=== PATIENT | male | born 1925 | race Caucasian/White ===

== ENCOUNTER → 2017-01-12 | Outpatient (CLI) | payer MEDICARE, BC ==
[~2017-01-12] MED LIST: ALBU.5I NEB; ASPI81TA19 PO; BENZ100 PO; LEVO50TA4 PO; LISI-515 PO; PRED10PA PO; PRIL20CA9 PO; VITA10004 PO; ZITH250T PO
[2017-01-12 09:09] LABS: HEMATOCRIT 39.8 % (39.0-51.0); MEAN CELL VOLUME 91.3 FL (80.0-100.0); MEAN CORPUSCULAR HEMOGLOBIN 30.5 PG (27.0-34.0); MEAN CORPUSCULAR HGB CONC 33.4 % (32.0-36.0); PLATELET COUNT 174 TH/MM3 (150-450); RED BLOOD COUNT 4.36 MIL/MM3 (4.50-5.90); RED CELL DISTRIBUTION WIDTH 14.7 % (11.6-17.2); REVIEW FLAG FINAL; WHITE BLOOD COUNT 5.1 TH/MM3 (4.0-11.0)
[2017-01-12 09:27] LABS: ALKALINE PHOSPHATASE 66 U/L (45-117); ALT (GPT) 16 U/L (12-78); ANION GAP 6 MEQ/L (5-15); AST (GOT) 20 U/L (15-37); BICARBONATE 29.5 MEQ/L (21.0-32.0); BLOOD UREA NITROGEN 15 MG/DL (7-18); CHLORIDE 108 MEQ/L (98-107); GLOMERULAR FILTRATION RATE 59 ML/MIN (>89); GLUCOSE,FASTING 111 MG/DL (74-99); HDL CHOLESTEROL 33.7 MG/DL (40.0-60.0); LDL CHOLESTEROL 103 MG/DL (0-99); LDL CHOLESTEROL DIRECT 117 MG/DL (0-99); POTASSIUM 4.1 MEQ/L (3.5-5.1); SODIUM (NA) 143 MEQ/L (136-145); TOTAL BILIRUBIN ADULT 0.6 MG/DL (0.2-1.0)
[2017-01-12 16:03] LABS: HEMOGLOBIN Ao 86.1 %; HEMOGLOBIN F 0.8 %; HEMOGLOBIN P3 3.8 %
== END ==
LOC: PLAB 06:57
PROVIDERS: ATTEND Family Medicine
DX: E78.2 Mixed hyperlipidemia (principal); E11.9 Type 2 diabetes mellitus without complications; I10 Essential (primary) hypertension; E03.8 Other specified hypothyroidism
CPT/HCPCS: 36415; 80053; 80061; 83036; 83721; 84439; 84443; 85027

== ENCOUNTER → 2017-04-14 | Outpatient (CLI) | payer MEDICARE, BC ==
[2017-04-14 09:23] LABS: HEMATOCRIT 36.9 % (39.0-51.0); MEAN CELL VOLUME 86.6 FL (80.0-100.0); MEAN CORPUSCULAR HEMOGLOBIN 29.1 PG (27.0-34.0); MEAN CORPUSCULAR HGB CONC 33.5 % (32.0-36.0); PLATELET COUNT 180 TH/MM3 (150-450); RED BLOOD COUNT 4.26 MIL/MM3 (4.50-5.90); RED CELL DISTRIBUTION WIDTH 14.2 % (11.6-17.2); REVIEW FLAG FINAL; WHITE BLOOD COUNT 5.6 TH/MM3 (4.0-11.0)
[2017-04-14 09:56] LABS: ANION GAP 10 MEQ/L (5-15); AST (GOT) 14 U/L (15-37); BICARBONATE 25.4 MEQ/L (21.0-32.0); BLOOD UREA NITROGEN 18 MG/DL (7-18); CHLORIDE 107 MEQ/L (98-107); GLOMERULAR FILTRATION RATE 76 ML/MIN (>89); GLUCOSE,FASTING 110 MG/DL (74-99); POTASSIUM 4.6 MEQ/L (3.5-5.1); SODIUM (NA) 142 MEQ/L (136-145)
[2017-04-14 10:08] LABS: ALKALINE PHOSPHATASE 75 U/L (45-117); ALT (GPT) 14 U/L (12-78); FREE T4 1.09 NG/DL (0.76-1.46); HDL CHOLESTEROL 26.6 MG/DL (40.0-60.0); LDL CHOLESTEROL 94 MG/DL (0-99); LDL CHOLESTEROL DIRECT 92 MG/DL (0-99); TOTAL BILIRUBIN ADULT 0.5 MG/DL (0.2-1.0)
[2017-04-14 16:44] LABS: HEMOGLOBIN A1a 1.2 %; HEMOGLOBIN A1b 1.7 %; HEMOGLOBIN Ao 85.3 %
== END ==
LOC: PLAB 06:52
PROVIDERS: ATTEND Family Medicine
DX: E11.9 Type 2 diabetes mellitus without complications (principal); E78.5 Hyperlipidemia, unspecified; I10 Essential (primary) hypertension; E03.8 Other specified hypothyroidism
CPT/HCPCS: 36415; 80053; 80061; 83036; 83721; 84439; 84443; 85027

== ENCOUNTER → 2017-08-12 | Outpatient (CLI) | payer MEDICARE, BC ==
[2017-08-12 10:16] LABS: HEMATOCRIT 35.3 % (39.0-51.0); MEAN CELL VOLUME 84.3 FL (80.0-100.0); MEAN CORPUSCULAR HEMOGLOBIN 27.5 PG (27.0-34.0); MEAN CORPUSCULAR HGB CONC 32.6 % (32.0-36.0); PLATELET COUNT 195 TH/MM3 (150-450); RED BLOOD COUNT 4.19 MIL/MM3 (4.50-5.90); RED CELL DISTRIBUTION WIDTH 16.1 % (11.6-17.2); REVIEW FLAG FINAL; WHITE BLOOD COUNT 5.6 TH/MM3 (4.0-11.0)
[2017-08-12 10:31] LABS: ANION GAP 5 MEQ/L (5-15); AST (GOT) 17 U/L (15-37); BLOOD UREA NITROGEN 18 MG/DL (7-18); CHLORIDE 110 MEQ/L (98-107); GLOMERULAR FILTRATION RATE 70 ML/MIN (>89); GLUCOSE,FASTING 96 MG/DL (74-99); POTASSIUM 4.1 MEQ/L (3.5-5.1); SODIUM (NA) 142 MEQ/L (136-145)
[2017-08-12 10:32] LABS: ALT (GPT) 15 U/L (12-78)
[2017-08-12 10:40] LABS: ALKALINE PHOSPHATASE 72 U/L (45-117); FREE T4 1.03 NG/DL (0.76-1.46); LDL CHOLESTEROL 91 MG/DL (0-99); LDL CHOLESTEROL DIRECT 104 MG/DL (0-99); TOTAL BILIRUBIN ADULT 0.5 MG/DL (0.2-1.0)
== END ==
LOC: PLAB 07:00
PROVIDERS: ATTEND Family Medicine
DX: E11.9 Type 2 diabetes mellitus without complications (principal); E78.2 Mixed hyperlipidemia; I10 Essential (primary) hypertension; E03.8 Other specified hypothyroidism
CPT/HCPCS: 36415; 80053; 80061; 83721; 84439; 84443; 85027

== ENCOUNTER → 2017-09-24 | Outpatient (CLI) | payer MEDICARE, BC ==
[2017-09-24 10:02] LABS: FREE T4 1.06 NG/DL (0.76-1.46)
== END ==
LOC: PLAB 06:44
PROVIDERS: ATTEND Family Medicine
DX: E03.8 Other specified hypothyroidism (principal)
CPT/HCPCS: 36415; 84439; 84443